=== PATIENT | female | born 1935 | race Caucasian/White ===

== ENCOUNTER 2018-01-11 16:27 | Outpatient (RCR) | payer MEDICARE, BC ==
[~2018-01-11 16:27] MED LIST: ACE325 PO; ASPI-715 PO; BIOT5TAB2 PO; CELE-1 PO; CYAN100088 PO; EST42T PV; IRB150 PO; LORA-802 PO; LORA10CA3 PO; PER PO; Vit D
--- NOTE | 2018-01-11 17:58 | PT INITIAL EVALUATION ---
MEDICAL DIAGNOSIS: Cervicalgia TREATMENT DIAGNOSIS: Thoracic Dysfunction DATE OF ONSET: 01/11/18 SUBJECTIVE: Shira is a 82 year old female presenting to PT following recent acute on chronic return of neck/back pain. Pt reports that she has had pain on and off here for 20+ years and that she has had therapy for it in the past. It had gone away, but then returned recently with increased physical demands lifting boxes when moving. Pain is not too bad currently, only present with palpation in the back but is present in the L arm between the shoulder and elbow. Pain at it's worst reaches a 5/10, increasing with lifting, cleaning and laundry. Pain is improved with muscle relaxing cream. Pain is described like a bruise. Pt also reports a history of LBP that has been present for the last 10 years. REHAB PROBLEM LIST: Increased Pain Decreased ROM Decreased Strength Decreased Function Decreased ADL's PREVIOUS MEDICAL HISTORY: See EMR OCCUPATION: Retired teacher OBJECTIVE: Posture: Forward head posture. ROM: Cervical ROM: full in all directions without pain but stretch on R side with L SB and with R rotation. Thoracic: Ext: min-mod limitations with pain in L shouder, flexion: full with pain in back slightly, L rotation: full without pain, R rotation: minimall restricted with R side thoracic pain. Palpation: Pt is tender to palpation from L elbow to R scapula spanning from C7 to T12. Sensation: Pt reports no numbness or tingling down arm. Special Tests: Neck Pain and Disability Index: 5/50 Mobility: Kassandra Repeated Motion Thoracic Spine: flexion: centralization of pain to the L AC joint, R within 1 inch of spine and T3-T6. ASSESSMENT: Pt shows signs and symptoms consistent with thoracic dysfunction as illustrated by the above listed impairments. Physical therapy is indicated for this patient to return to prior level of function with ADL's and recreational activities. Short Term Goals In 2 weeks pt will centralize pain to the thoracic spine only for improved function with ADL's. In 3 weeks pt will improve neck pain and disability index score to 0/50 for improved function with ADL's. Patient's Goals Decrease pain. PLAN: Patient to be seen for Manual Therapy/STM/MET Strengthening/condition Ice/Heat Range of Motion Spinal Stabilization Ultrasound Stretching Neuromuscular Re-ed Closed Chain Program Posture/Body mechanics [facility]ual T[facility] Therapeutic Activities 3x/Week for 3 Weeks If you have any questions, comments, or concerns about this report or plan, please contact me at . Thank you, Danna Helms, PT, DPT, CLT BREANNAD
== END 2018-01-11 18:00 | disposition home or self-care (01) ==
LOC: PT 16:27
PROVIDERS: ATTEND Nurse Practitioner Family
DX: M54.2 Cervicalgia (principal); M54.5 Low back pain
CPT/HCPCS: 97161

== ENCOUNTER → 2018-03-30 | Outpatient (REF) | payer MEDICARE, BC ==
[~2018-03-30] MED LIST changes: +ASPI-757 PO; +ATOR20TA22 PO; +BIOT10004 PO; +CALC1TAB32 PO; +DONE10TA38 PO; +KRIL1CAP22 PO; +LEVE500T73 PO; +MULT-19 PO; +UBID200C21 PO
[2018-03-30 17:34] LABS: PLATELET COUNT, AUTOMATED 204 K/uL (150-450)
== END ==
PROVIDERS: ATTEND Nurse Practitioner Family
DX: R25.2 Cramp and spasm (principal)
CPT/HCPCS: 82040; 82247; 82310; 82374; 82435; 82565; 82947; 84075; 84132; 84155; 84295; 84450; 84460; 84520; 85025

== ENCOUNTER → 2018-10-29 | Outpatient (CLI) | payer MEDICARE, BC ==
[~2018-10-29] MED LIST changes: +ASPI81TA94 PO; +DONE5TAB29 PO; +IRBE150T7 PO; +IRBE75TA10 PO
[2018-10-29 11:27] LABS: PLATELET COUNT, AUTOMATED 220 K/uL (150-450)
== END ==
LOC: LAB 11:10
PROVIDERS: ATTEND Family Medicine
DX: I10 Essential (primary) hypertension (principal)
CPT/HCPCS: 36415; 82040; 82247; 82310; 82374; 82435; 82565; 82947; 84075; 84132; 84155; 84295; 84450; 84460; 84520; 85025